=== PATIENT | female | born 1980 | race Asian ===

== ENCOUNTER 2016-11-18 00:28 | Emergency (ER) | payer BC ==
[~2016-11-18] VITALS: Ht 160 cm; Wt 59.5 kg
[2016-11-18 01:17] VITALS: Ht 160 cm; Wt 59.5 kg
--- NOTE | 2016-11-18 02:15 | ERD ---
ER Documentation Chief Complaint Date/Time DATE: 11/18/16 TIME: 02:09 Chief Complaint 8 wks , vag bleeding today HPI 36-year-old female presents here in emergency department for complaints of vaginal bleeding started yesterday, patient is a 8 weeks , 1 para 0 0. Patient started with vaginal spotting yesterday, got worse today. Patient last menstruation 09/17/2016. Patient is complaining of pelvic pain, cramping pain, for/10 scale, accompanying the vaginal bleeding. Patient denies hematuria or dysuria. ROS All systems reviewed and are negative except as per history of present illness. Medications Home Meds Reported Medications [none] Unknown Strength No Conflict Check 11/18/16 Allergies Allergies: Coded Allergies: No Known Allergy (Unverified , 11/18/16) PMhx/Soc Medical and Surgical Hx: pt denies Medical Hx, pt denies Surgical Hx History of Surgery: No Anesthesia Reaction: No Hx Neurological Disorder: No Hx Respiratory Disorders: No Hx Cardiac Disorders: No Hx Psychiatric Problems: No Hx Miscellaneous Medical Probl: No Hx Alcohol Use: Yes (socially) Hx Substance Use: No Hx Tobacco Use: No Smoking Status: Never smoker FmHx Family History: No coronary disease, No diabetes, No other Physical Exam Vitals Vital Signs Date Time Temp Pulse Resp B/P Pulse Ox O2 Delivery O2 Flow Rate FiO2 11/18/16 01:17 98.6 89 20 130/72 98 Physical Exam GENERAL: The patient is well developed and appropriate for usual state of health, in no apparent distress. CHEST: Clear to auscultation bilaterally. There are no rales, wheezes or rhonchi. HEART: Regular rate and rhythm. No murmurs, clicks, rubs or gallops. No S3 or S4. ABDOMEN: Soft, nontender and nondistended. Good bowel sounds. No rebound or guarding. No gross peritonitis. No gross organomegaly or masses. No Zurita sign or McBurney point tenderness. BACK: No midline or flank tenderness. EXTREMITIES: Equal pulses bilaterally. There is no peripheral clubbing, cyanosis or edema. No focal swelling or erythema. Full range of motion. Grossly neurovascularly intact. NEURO: Alert and oriented. Cranial nerves 2-12 intact. Motor strength in all 4 extremities with 5/5 strength. Sensation grossly intact. Normal speech and gait. SKIN: There is no apparent rash or petechia. The skin is warm and dry. HEMATOLOGIC AND LYMPHATIC: There is no evidence of excessive bruising or lymphedema. No gross cervical, axillary, or inguinal lymphadenopathy. VAGINAL: Small amount of blood in the vaginal vault, cervical os is closed. No adnexal tenderness or cervical motion tenderness noted. Result Diagram: 11/18/16 0238 Results 24 hrs Laboratory Tests Test 11/18/16 02:38 Basophils # 0.010^3/ul Basophils % 0.1% Beta HCG, Quantitative 3761.4mIU/ml Eosinophils # 0.210^3/ul Eosinophils % 1.3% Hematocrit 43.0% Hemoglobin 14.8g/dl Lymphocytes # 1.910^3/ul Lymphocytes % 13.2% Mean Corpuscular Hemoglobin 31.6pg Mean Corpuscular Hemoglobin Concent 34.4g/dl Mean Corpuscular Volume 92.0fl Mean Platelet Volume 9.0fl Monocytes # 0.610^3/ul Monocytes % 4.5% Neutrophils # 11.410^3/ul Neutrophils % 80.9% Nucleated Red Blood Cells # 0.010^3/ul Nucleated Red Blood Cells % 0.0/100WBC Platelet Count 38327^3/UL Red Blood Count 4.6710^6/ul Red Cell Distribution Width 12.1% Urine Bacteria MODERATE Urine Bilirubin NEGATIVE Urine Clarity HAZY Urine Color RED Urine Glucose NEGATIVE% Urine Hemoglobin 3+ Urine Ketones NEGATIVE Urine Leukocyte Esterase NEGATIVE Urine Microscopic RBC >200/HPF Urine Microscopic WBC 0-2/HPF Urine Nitrite NEGATIVE Urine Specific Mode 1.010 Urine Squamous Epithelial Cells MODERATE Urine Total Protein NEGATIVE Urine Urobilinogen 0.2 E.U./dL Urine pH 6.0 White Blood Count 14.110^3/ul PROCEDURE: Obstetrical ultrasound. CLINICAL INDICATION: Vaginal bleeding. TECHNIQUE: Multiple sonographic images of the pelvis were obtained utilizing a transabdominal and endovaginal technique. The images were reviewed on a PACS workstation. COMPARISON: None. FINDINGS: The uterus is visualized. No abnormal uterine mass is identified. The endometrial echo complex is thickened and heterogeneous measuring 1.5 cm with increased flow. No intrauterine is identified. There is no evidence for free fluid. The right ovary has a normal echotexture and measures 2.9 x 1.7 x 2.2 cm. The left ovary has a normal echotexture and measures 3.1 x 1.5 x 1.9 cm. There is normal flow to both ovaries. No adnexal masses are identified. IMPRESSION: Thickened and heterogeneous endometrium with no intrauterine identified. There is increased flow within the endometrium. Clinical beta-hCG correlation and follow-up is recommended. .Merritt Shetty MD, Date Time Electronically viewed and signed by .Merritt Shetty MD, on 11/18/2016 02:47 .T/ CC: URI P[employer]CE [employer] Procedures/MDM Medical Decision Making: Patients vaginal bleeding is most likely consistent of possible threatened , can be spontaneous . Patient does not show any evidence of hypovolemic shock. Patients hemoglobin and hematocrit is stable. There is low suspicion for ectopic since patient does not complain of severe abdominal pain, is stable at this time, patient also states that she has passed a lot of of clots by to coming here in emergency department. VIOLET results show no viable with thickened endometrium BetaHCG Quantitative is very low considering patient is a 8 weeks . Patient states that November 02 are beta-hCG was in the 1999s. The patient is Rh+ , does not need RhoGAM this time. There is no signs of symptoms of dehydration. There is low suspicion for sepsis. Patient appears well and is hemodynamically stable. Disposition: Home. Condition: Stable Instructions: Patient is advised to do bed rest, avoid heavy lifting, and avoid having sex until cleared by OB doctor. Patient is advised to follow up with OB doctor or here at the ER in 48 hours for reevaluation of symptoms, repeat beta HCG quantitative and ultrasound. Patient is advised that is symptoms are worst, severe bleeding, dizziness, severe abdominal pain, fever, worst signs and symptoms to return to the emergency department immediately. Departure Diagnosis: Primary Impression: Vaginal bleeding Condition: Stable Patient Instructions: Possible Miscarriage (Threatened ) Additional Instructions: : Patient is advised to do bed rest, avoid heavy lifting, and avoid having sex until cleared by OB doctor. Patient is advised to follow up with OB doctor or here at the ER in 48 hours for reevaluation of symptoms, repeat beta HCG quantitative and ultrasound. Patient is advised that is symptoms are worst, severe bleeding, dizziness, severe abdominal pain, fever, worst signs and symptoms to return to the emergency department immediately. URI PONCE NP Nov 18, 2016 02:15
--- NOTE | 2016-11-18 02:47 | RADRPT ---
PROCEDURE: Obstetrical ultrasound. CLINICAL INDICATION: Vaginal bleeding. TECHNIQUE: Multiple sonographic images of the pelvis were obtained utilizing a transabdominal and endovaginal technique. The images were reviewed on a PACS workstation. COMPARISON: None. FINDINGS: The uterus is visualized. No abnormal uterine mass is identified. The endometrial echo complex is t hickened and heterogeneous measuring 1.5 cm with increased flow. No intrauterine is identi fied. There is no evidence for free fluid. The right ovary has a normal echotexture and measures 2.9 x 1. 7 x 2.2 cm. The left ovary has a normal echotexture and measures 3.1 x 1.5 x 1.9 cm. There is norm al flow to both ovaries. No adnexal masses are identified. IMPRESSION: Thickened and heterogeneous endometrium with no intrauterine identified. There is increase d flow within the endometrium. Clinical beta-hCG correlation and follow-up is recommended. .Merritt Shetty MD, Date Time Electronically viewed and signed by .Merritt Shetty MD, on 11/18/2016 02:47 .T/
[2016-11-18 03:49] LABS: BASOPHILS % 0.1 % (0.0-2.0); EOSINOPHILS # 0.2 10^3/ul (0.0-0.5); EOSINOPHILS % 1.3 % (0.0-7.0); HEMOGLOBIN 14.8 g/dl (12.0-16.0); LYMPHOCYTES # 1.9 10^3/ul (0.8-2.9); LYMPHOCYTES % 13.2 % (15.0-51.0); MEAN CORPUSCULAR HEMOGLOBIN 31.6 pg (29.0-33.0); MEAN CORPUSCULAR HGB CONC 34.4 g/dl (32.0-37.0); MONOCYTE # 0.6 10^3/ul (0.3-0.9); MONOCYTES % 4.5 % (0.0-11.0); NEUTROPHIL # 11.4 10^3/ul (1.6-7.5); NEUTROPHILS % 80.9 % (39.0-77.0); PLATELET COUNT 207 10^3/UL (140-440); RED BLOOD COUNT 4.67 10^6/ul (4.20-5.40); RED CELL DISTRIBUTION WIDTH 12.1 % (11.5-14.5); UNCORRECTED WBC 14.1 10^3/ul (4.8-10.8); WHITE BLOOD COUNT 14.1 10^3/ul (4.8-10.8)
[2016-11-18 04:08] LABS: ADD UMIC YES; URINE BILIRUBIN (Dip) NEGATIVE (NEGATIVE); URINE BLOOD (Dip) 3+ (NEGATIVE); URINE COLOR RED (YELLOW); URINE GLUCOSE (Dip) NEGATIVE (NEGATIVE); URINE KETONES (Dip) NEGATIVE (NEGATIVE); URINE LEUKOCYTE ESTERASE (Dip) NEGATIVE (NEGATIVE); URINE NITRITE (Dip) NEGATIVE (NEGATIVE); URINE UROBILINOGEN (Dip) 0.2 E.U./dL (0.1-1.0)
[2016-11-18 04:19] LABS: CONDITION 1
[2016-11-18 04:42] LABS: BACTERIA,URINE MODERATE; SQUAMOUS EPITHELIAL CELL,UR MODERATE; URINE RBCS >200 /HPF (0); URINE TOTAL PROTEIN (Dip) NEGATIVE (NEGATIVE)
== END 2016-11-18 05:08 | disposition home or self-care (01) ==
LOC: FTE 00:28 → EDBD 00:28 → FTE 05:08
DX: O20.9 Hemorrhage in early pregnancy, unspecified (principal); R10.2 Pelvic and perineal pain; Z3A.08 8 weeks gestation of pregnancy
CPT/HCPCS: 36415; 76801; 76817; 81001; 81003; 84702; 85025; 86900; 86901